=== PATIENT | female | born 2000 ===

== ENCOUNTER 2021-08-28 18:02 | Emergency (ER) | payer SELFPAY ==
[~2021-08-28 18:02] MED LIST: Iopamidol 370 76% 100 ML VIAL ONE
[2021-08-28] MEDS ORDERED: Fentanyl 100 MCG/2 ML VIAL ONE ×3 (18:04→21:19)
[2021-08-28 18:36] LABS: #Eosinphils 0.1 thou/uL (0.0-0.7); #Lymphocytes 3.9 thou/uL (1.20-3.40); #Monocytes 0.8 thou/uL (0.11-0.59); #Neutrophils 14.8 thou/uL (1.40-6.50); %Basophils 0.2 % (0.0-1.0); %Eosinophils 0.4 % (0.0-10.0); %Monocytes 4.1 % (0.0-4.0); %Neutrophils 75.3 % (31.0-61.0); Mean Corpuscular HGB CONC 32.5 g/dL (32.0-36.0); Mean Corpuscular Hemoglobin 28.2 pg (25.0-35.0); Mean Corpuscular Volume 86.6 fL (78.0-98.0); Mean Platelet Volume 7.3 fL (7.4-10.4); Platelet Count 331 thou/uL (130-400); RBC Distribution Width 11.3 % (11.5-14.5); Red Blood Cell (RBC) Count 4.98 mill/uL (4.00-5.20); White Blood Cell (WBC) Count 19.6 thou/uL (4.8-10.8)
[2021-08-28 18:43] LABS: BHCG - Serum Negative (NEGATIVE); Pregs Control Background? CLEAR/WHITE (CLR/WHITE); Pregs Control Bar Appear? YES (CONTROL BAR)
[2021-08-28 18:57] LABS: Prothrombin Time 13.1 sec (12.0-14.7)
[2021-08-28 18:58] LABS: PTT 26.4 sec (22.9-36.1)
[2021-08-28 18:59] LABS: ALT (SGPT) 43 U/L (8-55); AST (SGOT) 43 U/L (5-30); Albumin 4.1 g/dL (3.5-5.0); Alcohol Less than 10 mg/dL (Less than 10); Alkaline Phosphatase 47 U/L (40-100); Anion Gap 17 mmol/L (10-20); BUN (Urea Nitrogen) 15 mg/dL (8.4-21.0); Bilirubin, Total 0.5 mg/dL (0.2-1.2); Calc. Creatinine Clearance 0 mL/min (70-130); Calcium 8.9 mg/dL (7.8-10.44); Carbon Dioxide 17 mmol/L (22-29); Chloride 107 mmol/L (98-107); Globulin 3.1 g/dL (2.4-3.5); Glucose 107 mg/dL (70-105); Potassium 3.1 mmol/L (3.5-5.1); Protein, Total 7.2 g/dL (6.0-8.3); Sodium 138 mmol/L (136-145)
[2021-08-28] MEDS ORDERED: Xylocaine 1% w/ Epi 1:100K 10 ML VIAL ONE (20:03)
[2021-08-28] MEDS ORDERED: Boostrix 0.5 ML (Tdap) VIAL ONE (20:18)
[2021-08-28] MEDS ORDERED: CEFAZOLIN 1 GM VIAL ONE (20:21)
[2021-08-28] MEDS ORDERED: Ketorolac Tromethamine 30 MG/ML VIAL ONE (21:20)
== END 2021-08-28 23:47 | disposition home or self-care (01) ==
LOC: ERS 18:02
DX: S09.90XA Unspecified injury of head, initial encounter (principal); S00.31XA Abrasion of nose, initial encounter; S52.615A Nondisplaced fracture of left ulna styloid process, initial encounter for closed fracture; S62.521A Displaced fracture of distal phalanx of right thumb, initial encounter for closed fracture; S92.212A Displaced fracture of cuboid bone of left foot, initial encounter for closed fracture; S27.321A Contusion of lung, unilateral, initial encounter; V29.60XA Unspecified motorcycle rider injured in collision with unspecified motor vehicles in traffic accident, initial encounter
CPT/HCPCS: 12002; 29105; 29515; 70450; 70486; 71045; 71260; 72125; 72170; 74177; 80053; 80307; 83605; 84703; 85025; 85610; 85730; 90471; 90715; 96365; 96375; 96376; G0390; J0690; J1885; J3010; Q9967